=== PATIENT | male | born 1985 | race Caucasian/White ===

== ENCOUNTER 2019-08-30 13:12 | Emergency (ER) | payer BC, SELFPAY ==
--- NOTE | ~2019-08-30 | XR_ITS ---
EXAMINATION: XR knee LT 3V DATE: 08/30/2019 13:50 INDICATION: Left knee pain. Fall. TECHNIQUE: 3 views of left knee were obtained. COMPARISON: None. FINDINGS: Bone alignment is normal. No fracture. There is mild osteoarthritis of lateral compartment. There is a small knee joint effusion. IMPRESSION: 1. Mild left knee osteoarthritis. 2. Small left knee joint effusion. Reviewed, dictated and finalized at location E.
[2019-08-30 13:13] VITALS: BP 150/92; PULSE 111; RESP 20; TEMP 36.3; O2SAT 96
--- NOTE | 2019-08-30 13:34 | ED.GENADULT ---
HPI - General Adult General Chief complaint: Extremity Injury, Lower <Skyler Browning PA-C - Last Filed: 08/30/19 15:15> Stated complaint: L knee pain <Skyler Browning PA-C - Last Filed: 08/30/19 15:15> Time Seen by Provider: 08/30/19 13:15 <Skyler Browning PA-C - Last Filed: 08/30/19 15:15> Source: patient <Skyler Browning PA-C - Last Filed: 08/30/19 15:15> Mode of arrival: ambulatory <Skyler Browning PA-C - Last Filed: 08/30/19 15:15> Limitations: no limitations <Skyler Browning PA-C - Last Filed: 08/30/19 15:15> History of Present Illness HPI narrative: Patient is a 33-year-old male who presents with left knee injury that occurred 2 days ago when he twisted the knee while slipping on a wet surface noting aching pain with abrasions to the anterior left knee patient presents per private vehicle for evaluation. Patient denies any radicular symptoms or paresthesias did not take anything for his symptoms and on arrival is in the room in no distress noting that the pain is worse with activity and movement and weightbearing <Skyler Browning PA-C - Last Filed: 08/30/19 15:15> Related Data Allergies/adverse reactions: Allergies Allergy/AdvReac Type Severity Reaction Status Date / Time No Known Allergies Allergy Verified 08/30/19 13:18 <Skyler Browning PA-C - Last Filed: 08/30/19 15:15> Review of Systems Review of Systems: All systems reviewed & are unremarkable except as noted in HPI and below <Skyler Browning PA-C - Last Filed: 08/30/19 15:15> PMFSH Past Medical History Medical History: Medical History Depression Lateral meniscus tear Right knee pain <CARLEE Manuel Last Filed: 08/30/19 15:15> Surgical History Surgical History: Surgical History Hx of tonsillectomy <CARLEE Manuel Last Filed: 08/30/19 15:15> Social History Social History: Social History Smoking packs per day: 1 Smoking cigarettes per day: 20.0 Smoking status: Current every day smoker Tobacco type: cigarettes Alcohol intake: never <Skyler Browning PA-C - Last Filed: 08/30/19 15:15> Course Course Emergency Course: Patient in the room aware of case findings treatment plan and diagnosis agreeing to follow-up as directed or to return if symptoms worsen or concerns <Skyler Browning PA-C - Last Filed: 08/30/19 15:15> Vital Signs Vital signs: Vital Signs Temperature 97.3 F L 08/30/19 13:13 Pulse Rate 111 H 08/30/19 13:13 Respiratory Rate 08/30/19 13:13 Blood Pressure 150/92 H 08/30/19 13:13 Pulse Oximetry 96 08/30/19 13:13 Temperature 97.3 F L 08/30/19 13:13 Pulse Rate 111 H 08/30/19 13:13 Respiratory Rate 08/30/19 13:13 Blood Pressure 150/92 H 08/30/19 13:13 Pulse Oximetry 96 08/30/19 13:13 <Skyler Browning PA-C - Last Filed: 08/30/19 15:15> Vital Signs Temperature 97.3 F L 08/30/19 13:13 Pulse Rate 111 H 08/30/19 13:13 Respiratory Rate 08/30/19 13:13 Blood Pressure 150/92 H 08/30/19 13:13 Pulse Oximetry 96 08/30/19 13:13 Temperature 97.3 F L 08/30/19 13:13 Pulse Rate 111 H 08/30/19 13:13 Respiratory Rate 08/30/19 13:13 Blood Pressure 150/92 H 08/30/19 13:13 Pulse Oximetry 96 08/30/19 13:13 <Shira Parsons MD - Last Filed: 08/30/19 18:42> Medical Decision Making MDM Narrative Medical decision making narrative: Patients injury or pain is consistent with musculoskeletal etiology. No signs of neurological or vascular compromise on exam. Compartments and tisues are soft without signs of compartment syndrome. Pain is felt appropriate for further evaluation on an outpatient basis. <Skyler Browning PA-C - Last Filed: 08/30/19 15:15> Vital Signs Vital Signs:
== END 2019-08-30 15:39 | disposition home or self-care (01) ==
PROVIDERS: Emergency Provider General Practice; PCP Family Medicine
DX: S89.92XA Unspecified injury of left lower leg, initial encounter (principal); F17.210 Nicotine dependence, cigarettes, uncomplicated; M17.12 Unilateral primary osteoarthritis, left knee; X50.9XXA Other and unspecified overexertion or strenuous movements or postures, initial encounter
CPT/HCPCS: 73562; 99283

== ENCOUNTER 2019-10-25 13:50 | Outpatient (CLI) | payer BC, SELFPAY ==
--- NOTE | ~2019-10-25 | XR_ITS ---
XR chest 2V DATE: 10/25/2019 14:10 INDICATION: Cough. Chest tightness. TECHNIQUE: PA and lateral views COMPARISON: None FINDINGS: Normal heart size. No hilar or mediastinal enlargement. No pulmonary infiltrate or consolid ation, pleural effusion or pulmonary vascular congestion or pneumothorax. Mild dextro scoliosis. Diffuse idiopathic skeletal hyperostosis of the thoracic spine. IMPRESSION: No active cardiopulmonary disease Reviewed, dictated and finalized at location A.
== END 2019-10-25 13:51 | disposition home or self-care (01) ==
LOC: ANHIMG 13:59
PROVIDERS: PCP Family Medicine; Visit Provider Nurse Practitioner Family
DX: R05 Cough (principal)
CPT/HCPCS: 71046

== ENCOUNTER 2022-08-11 12:23 | Emergency (ER) | payer SELFPAY ==
[2022-08-11 12:29] VITALS: BP 137/79; PULSE 100; RESP 20; TEMP 36.8; O2SAT 98
--- NOTE | 2022-08-11 12:53 | ED.MALEGU ---
HPI - Male Genitourinary General Chief complaint: Urogenital-Male Stated complaint: Back Pain/UTI Time Seen by Provider: 08/11/22 12:53 Source: patient Mode of arrival: ambulatory Limitations: no limitations History of Present Illness HPI Narrative: 36-year-old male, morbidly obese, presents with complaint of right-sided back pain for the last 2-3 days. Pain is worse with movement. States that if he stretches out his back sometimes pain feels better. Patient works at [employer] and reports stands for long periods of time. Denies injury. Patient also reports urinary frequency, urine darker than normal. Reports nausea my in back pain is bad. No vomiting. No constipation or diarrhea. No burning with urination. No history of kidney stones. Patient has not seen his primary care physician in 6 years. Reports he has no medical history and takes no prescribed medications. Ambulatory with steady gait. All systems reviewed and negative except as noted above. Related Data Allergies Allergy/AdvReac Type Severity Reaction Status Date / Time No Known Allergies Allergy Verified 08/11/22 12:40 Review of Systems Review of Systems: CONSTITUTIONAL: Denies fever, chills, or sweats. EYES: Denies visual changes, redness, or discharge. ENT: Denies rhinorrhea, congestion, sore throat, or otalgia. CARDIOVASCULAR: Denies chest pain, palpitations, or edema. RESPIRATORY: Denies cough or dyspnea. GASTROINTESTINAL: Denies abdominal pain, nausea, vomiting, or diarrhea. GENITOURINARY: Denies dysuria or hematuria. reports urinary frequency. SKIN: Denies rash or itching. MUSCULOSKELETAL: Reports right-sided low back pain. Denies joint pain, or myalgia. NEUROLOGIC: Denies headache, numbness, or weakness. PSYCHIATRIC: Denies anxiety or depression. All other systems reviewed are negative, except as documented in HPI. [facility] Past Medical History Medical History (Updated 08/11/22 @ 13:03 by Shyanne Koch NP) Depression Lateral meniscus tear Right knee pain Traumatic arthropathy of left knee Surgical History Surgical History Hx of tonsillectomy Family History Family History Father Hypertension Family history of diabetes mellitus in first degree relative Grandparent Carcinoma of colon Social History Social History Smoking packs per day: 1 Smoking cigarettes per day: 20.0 Smoking status: Current every day smoker Tobacco type: cigarettes Alcohol intake: never Comments At time of signature, agree with nursing past medical, surgical, social and family history. There is no relevant family history pertinent to the presenting complaint. Exam Narrative: GENERAL: This is a well-nourished, well-developed patient, in no apparent distress. HEAD: normocephalic, atraumatic. EYES: PERRL. Sclera clear/white. Vision is grossly intact. EARS: External ears normal NOSE: External nose normal NECK: Neck supple, non-tender without lymphadenopathy, masses or thyromegaly. CARDIOVASCULAR: Regular rate and rhythm without murmurs, gallops, or rubs. RESPIRATORY: Clear to auscultation. Breath sounds equal bilaterally. No wheezes, rales, or rhonchi. GASTROINTESTINAL: Abdomen soft, non-tender, nondistended. Bowel sounds are active. No hepato-splenomegaly, or palpable masses. No guarding. SKIN: warm, Dry, intact with no suspicious lesions or rash, good texture and turgor. NEURO: awake, alert, and oriented to person, place and time. There were no obvious focal neurologic abnormalities. EXTREMITIES: No joint tenderness, effusion, or edema noted. BACK: No CVA tenderness. No midline tenderness. Right muscular tenderness, tender over right SI. Positive right straight leg raise. Lower extremity strength 5/5 Bilaterally. Course Course Level of Care: Express
== END 2022-08-11 13:10 | disposition home or self-care (01) ==
PROVIDERS: Emergency Provider Nurse Practitioner Family; PCP Family Medicine
DX: R35.0 Frequency of micturition (principal); M54.41 Lumbago with sciatica, right side; F17.210 Nicotine dependence, cigarettes, uncomplicated
CPT/HCPCS: 81003; 82948; 99213; G0463

== ENCOUNTER 2022-08-13 14:52 | Emergency (ER) | payer SELFPAY ==
[2022-08-13] VITALS (14 sets, daily range): BP systolic 156–188; BP diastolic 92–116; PULSE 102–129; RESP 16–20; O2SAT 93–98
--- NOTE | ~2022-08-13 | CT_ITS ---
EXAMINATION: CT brain wo con DATE: 08/13/2022 15:30 INDICATION: head injury . TECHNIQUE: Computed tomography (CT) of the head was performed without intravenous contrast. The mA wa s adjusted according to patient size. Iterative reconstruction technique was employed. The dose-lengt h product was 983.67 mGy-cm. COMPARISON: None. FINDINGS: No acute intracranial hemorrhage or extra-axial fluid collection. No hydrocephalus, mass, or herniation. No acute ischemic infarct. Unremarkable dural venous sinus attenuation. No acute osseous abnormality. Air-fluid levels in the sphenoid sinuses, the remaining aerated spaces are clear. Cavum septa pellucidum et vergae, a normal variant. IMPRESSION: No acute intracranial process. Air-fluid levels in the sphenoid sinuses may represent acute sinusitis in the appropriate clinical context. Reviewed, dictated and finalized at location K. IMPRESSION: No acute intracranial process. Air-fluid levels in the sphenoid sinuses may rep resent acute sinusitis in the appropriate clinical context.
--- NOTE | ~2022-08-13 | XR_ITS ---
EXAMINATION: XR chest 1V DATE: 08/13/2022 15:32 INDICATION: Overdose. TECHNIQUE: A single frontal view of the chest was obtained. COMPARISON: Chest 2 views 10/25/2019 FINDINGS: There is volume loss of right hemithorax. There are airspace opacities at right lung apex. No pleural effusion or pneumothorax. The heart size is normal. IMPRESSION: 1. Volume loss of right hemithorax suspicious for partial right upper lobe collapse. Reviewed, dictated and finalized at location A. IMPRESSION: 1. Volume loss of right hemithorax suspicious for partial right upper lobe alison apse.
--- NOTE | ~2022-08-13 | CT_ITS ---
EXAMINATION: CT diagnostic chest w con DATE: 08/13/2022 17:23 INDICATION: right upper lobe collapse TECHNIQUE: Computed tomography (CT) of the chest was performed with 100 mL Omnipaque-350 intravenous contrast. Automated exposure control and iterative reconstruction technique were employed. The dose-l ength product was 1162.39 mGy-cm. COMPARISON: X-ray chest, same date. FINDINGS: CHEST: Thoracic aorta: No significant dilation or calcification. Lung parenchyma and airways: Centrilobular groundglass opacities in the right lung, most pronounced i n the right upper lobe. No significant atelectasis. Patent airways. Thoracic inlet, axillae and chest wall: No thyroid mass. Symmetric bilateral gynecomastia. No axillar y lymphadenopathy. Mediastinum: No mass or lymphadenopathy. Heart and pericardium: Normal heart size. No pericardial effusion. Coronary artery calcifications: Absent. Pleura: No effusion or mass. Upper abdomen: No significant finding. Thoracic bones: No acute osseous finding in the chest. IMPRESSION: Right lung centrilobular groundglass opacities may reflect asymmetric edema, hypersensitivity pneumon itis, respiratory bronchiolitis (especially in smokers), or infectious airways disease. No significan t atelectasis, prior radiograph findings likely secondary to a combination of residual thymic tissue, normal mediastinal fat, and rotation. Reviewed, dictated and finalized at location K. IMPRESSION: Right lung centrilobular groundglass opacities may reflect asymmetric edema, hy persensitivity pneumonitis, respiratory bronchiolitis (especially in smokers), or infectious airways disease. No significant atelectasis, prior radiograph fin dings likely secondary to a combination of residual thymic tissue, normal media stinal fat, and rotation.
--- NOTE | 2022-08-13 15:08 | ECG_ITS ---
Measurements Intervals [place] Rate: 117 P: 59 TN: 147 QRS: 55 QRSD: 92 T: 48 QT: 312 QTc: 436 Interpretive Statements SINUS TACHYCARDIA BASELINE ARTIFACT- I, II, III, AVR, AVL, AVF, V1-V6 ABNORMAL ECG NO PREVIOUS ECG AVAILABLE FOR COMPARISON Electronically Signed On 08-13-2022 16:50:56 CDT by Ryland Ortiz D.O.
[2022-08-13] MEDS: SODIUM CHLORIDE 0.9% IV 1,000 ML 999 ML IV CONT (15:25)
[2022-08-13 16:23] LABS: Hematocrit 45.8 % (42.0-52.0); Hemoglobin 14.8 g/dL (14.0-18.0); Mean Corpuscular HGB Conc 32.3 g/dl (32-36); Mean Corpuscular Hemoglobin 29.7 pg (26-34); Mean Corpuscular Volume 91.8 fl (80-100); Mean Platelet Volume 8.8 fl (7.4-10.4); Platelet Count Result 314 k/mm3 (150-375); Red Blood Count 4.99 M/mm3 (4.6-6.20); Red Cell Distribution Width 13.4 % (11.5-14.5)
[2022-08-13 16:38] LABS: Partial Thromboplastin Time 24.4 SECONDS (22.3-36.8)
--- NOTE | 2022-08-13 16:38 | PC.NURSE ---
ekg completed. pt provided with ice water per request.
[2022-08-13 16:39] LABS: Alanine Aminotransferase 29 U/L (6-50); Albumin Level 4.5 g/dL (3.5-5.1); Alkaline Phosphatase 74 U/L (38-126); Anion Gap 14 mmol/L (8-16); Aspartate Amino Transferase 28 U/L (17-59); Bilirubin,Total 0.4 mg/dL (0.2-1.3); Blood Urea Nitrogen 15 mg/dL (9-20); Calcium 8.8 mg/dL (8.4-10.2); Carbon Dioxide 27 mmol/L (22-30); Chloride 96 mmol/L (98-107); Estimated CRCL calculation 149 ml/min; Estimated Glomerular Filt Rate > 60; Glucose 124 mg/dL (65-110); Potassium 3.4 mmol/L (3.4-5.0); Sodium 137 mmol/L (137-145)
[2022-08-13 16:50] LABS: Band Neutrophils Percent 3 % (0-6); Lymphocytes Absolute Manual 0.76 K/mm3 (1.1-4.5); Monocytes Absolute Manual 0.38 K/mm3 (0.1-0.90); Monocytes Percent Manual 2 % (3-9); Neutrophils Absolute Manual 17.86 K/mm3 (1.3-6.7); Neutrophils Percent Manual 91 % (46-73); Total Cells Counted 100
[2022-08-13 16:51] LABS: Platelet Estimate Adequate (Adequate); Schistocytes None Seen (NORMAL)
[2022-08-13 17:00] LABS: Acetaminophen < 10 ug/mL (10-30); Ethanol < 10 mg/dL (<10)
--- NOTE | 2022-08-13 18:39 | ED.OVERDOSE ---
HPI - Overdose General Chief Complaint: Overdose Stated Complaint: AMS, seizure vs OD? Time Seen by Provider: 08/13/22 14:58 History of Present Illness HPI Narrative: Patient is a 36-year-old male who presents ER with opiate overdose. Patient reports he snorted 45 mg of immediate release oxycodone while in the bathroom at work. EMS reports patient had a brief 30 second seizure. They administered multiple doses of Narcan. Patient did have some Narcan on him just in case you were covered overdose but it was not used. Patient reports no no intentional effort to overdose and was not suicidal. He has no additional complaints at this time. He has no cough or dyspnea. He is without chest pain. No headache despite having some bruising to his forehead. Denies history of seizure disorder. Related Data Allergies Allergy/AdvReac Type Severity Reaction Status Date / Time No Known Allergies Allergy Verified 08/11/22 12:40 Review of Systems Review of Systems: All systems reviewed & are unremarkable except as noted in HPI and below Constitutional: Constitutional: Denies chills, Denies fatigue and Denies fever(s) ENT: Denies nasal congestion and Denies sore throat Cardiovascular: Cardiovascular: Denies chest pain, Denies rapid heart rate and Denies radiating jaw, neck or arm pain Respiratory: Respiratory: Denies cough and Denies dyspnea Gastrointestinal: Gastrointestinal: Denies abdominal pain, Denies nausea and Denies vomiting PMFSH Past Medical History Medical History (Updated 08/13/22 @ 18:40 by Wenceslao Israel MD) Depression Lateral meniscus tear Right knee pain Traumatic arthropathy of left knee Surgical History Surgical History Hx of tonsillectomy Family History Family History Father Hypertension Family history of diabetes mellitus in first degree relative Grandparent Carcinoma of colon Social History Social History Smoking packs per day: 1 Smoking cigarettes per day: 20.0 Smoking status: Current every day smoker Tobacco type: cigarettes Alcohol intake: never Exam Narrative: GENERAL: Ill-appearing, morbidly obese, and in no acute distress. HEAD: Normocephalic, contusion to right forehead. EYES: PERRL and EOMI. ENT: Mucous membranes moist. CHEST: Clear to auscultation. No respiratory distress. HEART: Tachycardic and regular. Normal peripheral pulses. ABDOMEN: Soft, nontender, nondistended. EXTREMITIES: Normal range of motion. No edema. SKIN: Warm, dry, no rash. NEURO: Alert and oriented x3. PSYCH: Normal mood and affect. Course Course Emergency Course: Urinalysis and drug screen pending but the rest the patient's blood work is returned. Discussed imaging and labs and recommend admission for possible aspiration pneumonia. Patient has no dyspnea or cough at this time and is not hypoxic. He does not wish to stay in the hospital and prefer to go home. I have discussed risk of respiratory compromise and hypoxia and possible and he would rather be at home with his mother. I will prescribe him oral antibiotics for home as well as an inhaler. We discussed that he should come back immediately should he begin to feel more ill and he is verbalized understanding of this. Recommend he discontinue any narcotic medication he is also verbalized understanding of this as well. Vital Signs Vital signs: Vital Signs Pulse Rate 129 H 08/13/22 14:50 Respiratory Rate 20 08/13/22 14:50 Blood Pressure 176/116 H 08/13/22 14:50 Pulse Oximetry 97 08/13/22 14:50 Oxygen Delivery Room Air 08/13/22 14:50 Pulse Rate 124 H 08/13/22 14:59 Respiratory Rate 20 08/13/22 14:50 Blood Pressure 187/98 H 08/13/22 18:02 Pulse Oximetry 94 08/13/22 18:02 Oxygen Delivery Room Air 08/13/22 14:50 MDM - O
[2022-08-13 18:53] LABS: Amphetamine Screen Urine Negative (Negative); Barbiturate Screen Urine Negative (Negative); Benzodiazepines Screen Urine Negative (Negative); Cannabinoid Screen Urine Negative (Negative); Cocaine Screen Urine Negative (Negative); Methadone Screen Urine Negative (Negative); Opiate Screen Urine Negative (Negative); Phencyclidine Screen Urine Negative (Negative)
[2022-08-13 18:55] LABS: Appearance Urine Clear (Clear); Bacteria Urine None Seen /hpf; Bilirubin Urine Negative (Negative); Blood Urine Trace (Negative); Color Urine Yellow (Yellow); Glucose Urine UA 2+ mg/dL (Negative); Hyaline Casts Urine Present /lpf; Ketones Urine Negative (Negative); Leukocyte Esterase Ur Negative LEU/UL (Negative); Nitrate Urine Negative (Negative); Non Pathogenic Casts >20; Protein Urine 2+ mg/dL (Negative); RBC Urine 0-2 /hpf (0-2); Squamous Epithelial Cell Urine Occasional /hpf (Few); Urobilinogen Urine 0.2 mg/dL (<2.0); WBC Urine 0-5 /hpf
[2022-08-13 18:57] LABS: Add Urine Microscopic? YES; Specific Grav Ur 1.054 (1.001-1.035)
== END 2022-08-13 19:18 | disposition home or self-care (01) ==
PROVIDERS: Emergency Provider Emergency Medicine; PCP Family Medicine
DX: T40.2X1A Poisoning by other opioids, accidental (unintentional), initial encounter (principal); J18.9 Pneumonia, unspecified organism; F17.210 Nicotine dependence, cigarettes, uncomplicated; R00.0 Tachycardia, unspecified
CPT/HCPCS: 36415; 70450; 71045; 71260; 80053; 80307; 81001; 85025; 85610; 85730; 93005; 96360; 96361; 99284; J7030; Q9967